=== PATIENT | female | born 1980 | race Asian ===

== ENCOUNTER 2016-11-20 06:40 | Inpatient (IN) | payer OTHER ==
[2016-11-20] MEDS ORDERED: LIDOCAINE 1% 30 ML SDV ONE (06:54)
[2016-11-20] MEDS ORDERED: OLIVE OIL 118 ML BTL ONE (06:54)
[2016-11-20] MEDS ORDERED: OXYTOCIN 10 UNIT/ML VIAL ONE (06:55)
[2016-11-20] MEDS ORDERED: MISOPROSTOL 200 MCG TAB ONE (06:55)
[2016-11-20] MEDS ORDERED: LR 1,000 ML IV PRN (07:01)
[2016-11-20] MEDS ORDERED: TERBUTALINE SULFATE 1 MG/ML VIAL IV PRN (07:01)
[2016-11-20] MEDS ORDERED: OLIVE OIL 118 ML BTL MISC PRN (07:01)
[2016-11-20] MEDS ORDERED: OXYTOCIN/RINGERS LACTATE 1,000 ML IV PRN (07:01)
[2016-11-20] MEDS ORDERED: EPSOM SALT 454 GM TP PRN (07:01)
[2016-11-20] MEDS ORDERED: LIDOCAINE 1% 30 ML SDV SC PRN (07:01)
[2016-11-20 07:14] LABS: % IMMATURE GRANULYOCYTES 1.2 % (0.0-1.1); ABSOLUTE IMMATURE GRANULOCYTES 0.11 10^3/uL (0.00-0.10); ADD DIFF? NO; ADD MORPH? NO; ADD SCAN? NO; ATYPICAL LYMPHOCYTE FLAG 0 (0-99); FRAGMENT RBC FLAG 0 (0-99); LEFT SHIFT FLG 10 (0-99); LIPEMIA HEMOLYSIS FLAG 90 (0-99); MEAN CELL HEMOGLOBIN 31.4 pg (27.9-34.1); MEAN CELL HEMOGLOBIN CONCENTR. 34.1 g/dL (32.4-36.7); MEAN CELL VOLUME 91.9 fL (81.5-99.8); MEAN PLATELET VOLUME 10.9 fL (8.7-11.7); PLATELET CLUMPS FLAG 30 (0-99); PLATELET COUNT 203 10^3/uL (150-400); RED BLOOD CELL COUNT 4.46 10^6/uL (4.18-5.33); RED CELL DISTRIBUTION WIDTH 13.4 % (11.5-15.2)
[2016-11-20] MEDS ORDERED: PHENYLEPHRINE HCL 100 MCG/ML SYR ONE (07:18)
[2016-11-20] MEDS ORDERED: fentaNYL 100 MCG/2 ML INJ ONE (07:18)
[2016-11-20] MEDS ORDERED: fentaNYL 2MCG/ML/BUP 0.1% RTU 100 ML BAG EP ONE (07:18)
[2016-11-20] MEDS ORDERED: BUPIVACAINE 0.25% 30 ML SDV ONE (07:18)
--- NOTE | 2016-11-20 07:37 | OBPROG ---
OBG Progress Note Assessment/Plan: Assessment: cat2 coping well with pain request for an epidural for pain relief bow intact 9/100/0 dania q2-3 minutes Plan:epidural expectant management of labor 11/20/16 07:35 Subjective: I would like to get an epidural for pain relief as soon as possible Objective: 11/20/16 07:00 - SVE Dilation (cm): 9 Effacement (%): 100 Station: 0 Current Contraction Pattern: Regular FHR (bpm): 135 FHR Pattern Variability: Moderate FHR Category: 2 Membranes: Intact - Physical Exam General Appearance: WD/WN, alert, no apparent distress Respiratory: chest non-tender, lungs clear, normal breath sounds Cardiac/Chest: regular rate, rhythm Abdomen: normal bowel sounds Extremities: normal range of motion, Irene's sign (negative bilaterally) DTR- Lower Extremities: Knee (R): 1+, Knee (L): 1+ (no clonus bilaterally) Skin: normal color, warm/dry Neuro/Psych: no motor/sensory deficits, alert, normal mood/affect, oriented x 3 ICD10 Worksheet Patient Problems: Problems Problem Status Onset term labor Acute
--- NOTE | 2016-11-20 08:14 | GHP ---
[f rep st] HISTORY AND PHYSICAL DATE OF ADMISSION: 11/20/2016 HISTORY OF PRESENT ILLNESS: The patient is a 36-year-old 2, para 1, with an EDC of 11/22/19 17, which gives her a gestational age of 39 and 6/7th weeks, who comes in with complaint of possible rupture of membranes at 3 a.m. and labor since 5 a.m. On admit, patient is 9, 100, and 0 station, feeling regular contractions every 2-3 minutes. States feeling positive movement. States pos itive bloody show. On exam, bag of water is intact. Patient has been routinely seeing [facility] since 11 and 07/07 weeks; first visit was 05/01/2016. MEDICAL HISTORY: Benign. HISTORY: Benign. FAMILY HISTORY: Benign. SOCIAL HISTORY: Patient is to [place]. Denies smoking and no drug use throughout the pregna ncy. PREVIOUS HISTORY: One delivery on 03/2014, a girl who weighed 7 pounds 4 ounces at 40 wee ks delivered, 12 hours delivered vaginally with an epidural with no complications. That child's nam e is Lolita. PHYSICAL ASSESSMENT: GENERAL: Patient is awake, alert, oriented x3. LUNGS: Clear bilaterally. A BDOMEN: Bowel sounds are positive in all 4 quadrants. EXTREMITIES: DTRs are 1+ bilaterally. Amelie ns sign is negative bilaterally. PELVIC: Contractions are q.2 to 3 minutes. Exam on admit: 9, 10 0, and 0 station. Bag of water was intact. Patient requested an epidural for pain relief. LABORATORY DATA: Patient is A positive, antibody negative, nonreactive RPR. Rubella is immune. He patitis is negative. HIV is negative. Trio screen on 05/01/2016 was negative. UA was negative. P ap, gonorrhea and chlamydia were negative. Verifi was negative. 1-hour GTT was within normal limit s. Patient is GBS negative. PLAN OF CARE: 1. Dr. Mendoza in for delivery. 2. GBS negative. 3. Epidural for pain relief. /[id number]/MODL
[2016-11-20] MEDS ORDERED: HYDROCORTISONE 0.5% CREAM TP PRN (09:57)
[2016-11-20] MEDS ORDERED: HYDROCODONE/APAP 5/325 TAB PO PRN (09:57)
[2016-11-20] MEDS ORDERED: ACETAMINOPHEN 325 MG TAB PO PRN (09:57)
[2016-11-20] MEDS ORDERED: SIMETHICONE 80 MG TAB CHEW PO PRN (09:57)
--- NOTE | 2016-11-20 09:59 | OBPROC ---
- Labor and Delivery Onset of Contractions Date: 11/20/16 Onset of Contractions Time: 05:00 Onset of Contractions Type: Spontaneous Rupture of Membranes Date: 11/20/16 Rupture of Membranes Time: :18 Rupture of Membranes Type: Artificial Amniotic Fluid Color: Clear Dilation Complete Time: :18 Delivery Type: Spontaneous Placenta Delivery Date: 11/20/16 Placenta Delivery Time: :36 Episiotomy/Laceration: 2nd Degree, Perineal Repair: 2-0, Vicryl EBL: 250 Complications: Other (Specify) (umbilical cord evulsed with delivery, placenta delivered intact without problem) - Medications Labor Augmentation/Induction Meds Used: None Anesthesia: Epidural - [place] Info A Delivery Date: 11/20/16 Delivery Time: 09:31 Sex of : Male Score (1 Min): 8 Score (5 Min): 9
[2016-11-20] MEDS: IBUPROFEN 600 MG TAB PO PRN ×2 (10:07→16:06)
[2016-11-20] MEDS ORDERED: PHENYLEPHRINE HCL 100 MCG/ML SYR IVP PRN (11:26)
[2016-11-20] MEDS ORDERED: ONDANSETRON 4 MG/2 ML VIAL IVP PRN (11:26)
[2016-11-20] MEDS ORDERED: fentaNYL 2MCG/ML/BUP 0.1% RTU 100 ML EP SCH (11:30)
[2016-11-20] MEDS ORDERED: LR 500 ML IV SCH (11:30)
--- NOTE | 2016-11-20 11:31 | PREANESOB ---
Obstetric Pre-Anesthesia Info - General Info Proposed Procedure: Labor and delivery. : 2 Para: 1 WBD: 40 - Info Monitors: External FHR Baseline (bpm): 135 FHR Pattern: Reassuring - Labor Status Cervical Dilation per last OB SVE: 9 Station per last OB SVE: 0 Rupture of Membranes Time: 09:18 Indications for Labor Analgesia: Pain Control Labor Epidural: Proposed Anesthesia ROS: Prior labor epidural. Allergies/Adverse Reactions: Allergy/AdvReac Type Severity Reaction Status Date / Time No Known Allergies Allergy Unverified 11/20/16 07:01 Visit Medications: Generic Name Dose Route Start Last Admin Trade Name Freq PRN Reason Stop Dose Admin Acetaminophen 325 - 650 mg 11/20/16 09:57 Tylenol PO 05/19/17 09:56 Q4HRS PRN Pain, Mild Hydrocodone Bitart/Acetaminophen 1 - 2 tab 11/20/16 09:57 [place] 5/325 PO 11/30/16 09:56 Q4HRS PRN Pain, Moderate Docusate Sodium 100 mg 11/20/16 09:57 Colace PO 05/19/17 09:56 BID PRN Constipation Hydrocortisone 1 ismael 11/20/16 09:57 Hydrocortisone 0.5% TP 05/19/17 09:56 QID PRN Hemorrhoids Lactated Ringer's 1,000 mls @ 0 mls/hr 11/20/16 07:01 Lr IV 05/19/17 07:00 PRN PRN SEE PROTOCOL CONDITIONS Protocol Per Protocol Oxytocin/Lactated Ringer's 1,000 mls @ 150 mls/hr 11/20/16 07:01 11/20/16 09: 35 Pitocin 20 Units/Lr (Premix) IV 1,000 mls PRN PRN Administration Post- bleeding Ibuprofen 600 mg 11/20/16 07:01 11/20/16 10:07 Motrin PO 05/19/17 07:00 600 mg Q6HRS PRN Administration post , inflammation Lidocaine HCl 30 ml 11/20/16 07:01 Lidocaine Hcl 1% SC 05/19/17 07:00 ONCE PRN Episiotomy Magnesium Sulfate 454 gm 11/20/16 07:01 Epsom Salt TP 05/19/17 07:00 PRN PRN perineal discomfort [place] Oil 118 ml 11/20/16 07:01 Sweet Oil MISC 05/19/17 07:00 ONCE PRN preneal massage Simethicone 80 mg 11/20/16 09:57 Mylicon PO 05/19/17 09:56 ACHS PRN Gas Terbutaline Sulfate 0.25 mg 11/20/16 07:01 Brethine IV 05/19/17 07:00 ONCE PRN Tachysystole Discontinued Medications Generic Name Dose Route Start Last Admin Trade Name Frelitzy PRN Reason Stop Dose Admin Bupivacaine HCl Confirm 11/20/16 07:18 Sensorcaine 0.25% Sdv Administered 11/20/16 07:19 Dose 30 ml .ROUTE .STK-MED ONE Fentanyl Confirm 11/20/16 07:18 Sublimaze Administered 11/20/16 07:19 Dose 100 mcg .ROUTE .STK-MED ONE Fentanyl/Bupivacaine HCl Confirm 11/20/16 07:18 Fentanyl/Bupivacaine/Ns 2 Mcg/Ml 0.1% (Premix Administered 11/20/16 07:19 Dose 100 ml EP .STK-MED ONE Lidocaine HCl Confirm 11/20/16 06:54 Lidocaine Hcl 1% Administered 11/20/16 06:55 Dose 30 ml .ROUTE .STK-MED ONE Misoprostol Confirm 11/20/16 06:55 Cytotec Administered 11/20/16 06:56 Dose 800 mcg .ROUTE .STK-MED ONE [place] Oil Confirm 11/20/16 06:54 Sweet Oil Administered 11/20/16 06:55 Dose 118 ml .ROUTE .STK-MED ONE Oxytocin Confirm 11/20/16 06:55 Pitocin Administered 11/20/16 06:56 Dose 40 unit .ROUTE .STK-MED ONE Phenylephrine HCl Confirm 11/20/16 07:18 Fred-Synephrine Administered 11/20/16 07:19 Dose 1,000 mcg .ROUTE .STK-MED ONE - Anesthesia History Response to Local Anesthetics: Normal Anesthesia & Operative History: No Prior Problems - Social History Substance Use/Abuse: Denies - Focused Exam Blood Pressure: 102/66 Heart Rate: 73 Respiratory Rate: 16 Height/Weight (Nursing): Height 158 cm Weight 70.76 kg Physical Exam: Within normal limits. ASA Status: II Labs: 11/20/16 07:00 Patient ABO/Rh A POSITIVE 11/20/16 07:00 - Plan Anesthetic Plan: CSE Consent Signed and on Chart: Yes Patient/Guardian Understands and Agrees to Plan: Yes General Comments: Written consent after epidural due to patient discomfort.
--- NOTE | 2016-11-20 11:34 | POSTANESTH ---
Post Anesthetic Evaluation Cardiovascular Status: Normal, Stable Respiratory Status: Normal, Stable, Similar to Pre-op Cond. Level of Consciousness/Mental Status: Can Participate in Eval, Alert and Oriented Pain Control: Adequate, Prn Tx Ordered (Tolerated CSE well, stable, comfortable. ) Nausea/Vomiting Control: Adequate, Prn Tx Ordered Complications Possibly Related to Anesthesia: None Noted
[2016-11-21] MEDS: IBUPROFEN 600 MG TAB PO PRN ×4 (00:11→19:47)
--- NOTE | 2016-11-21 09:45 | SOAPPROG ---
SOAP Progress Note Assessment/Plan: Assessment: ppd# 1 s/p breast feeding Plan: routine post care 11/21/16 09:43 Subjective: patient is doing well. pain is well controlled. normal lochia. denies headache and changes in vision. ambulating. having cramping with breast feeding. norco helps. Objective: Vital Signs Temp Pulse Resp BP Pulse Ox 36.8 C 92 18 103/68 96 11/20/16 20:00 11/20/16 20:00 11/20/16 20:00 11/20/16 20:00 11/20/16 20:00 Laboratory Results 11/20/16 07:00 11/20/16 11/21/16 11/22/16 05:59 05:59 05:59 Output Total 250 Balance -250 Physical Exam - Physical Exam General Appearance: WD/WN, alert, no apparent distress Respiratory: chest non-tender, lungs clear, normal breath sounds Cardiac/Chest: normal peripheral pulses, regular rate, rhythm Abdomen: normal bowel sounds, non-tender, soft, other (fundus firm and non tender) Skin: normal color, warm/dry Extremities: normal range of motion, non-tender, normal inspection, normal capillary refill Neuro/Psych: no motor/sensory deficits, alert, normal mood/affect, oriented x 3 ICD10 Worksheet Patient Problems: Problems Problem Status Onset term labor Acute
[2016-11-21] MEDS: DOCUSATE SODIUM 100 MG CAP PO PRN ×2 (13:31→19:47)
[2016-11-21 22:27] VITALS: PULSE 84
[2016-11-22] MEDS: IBUPROFEN 600 MG TAB PO PRN ×2 (02:31→09:10)
--- NOTE | 2016-11-22 08:14 | OBPROG ---
OBG Progress Note Assessment/Plan: Assessment: s/p PPD # 2- pt is stable Plan: Plan for d/c home today Instructions reviewed with pt Rx given for [place] and Motrin Cont PNV Pelvic rest RTC in 4 and 6 weeks 11/22/16 08:16 Objective: 11/20/16 07:00 Patient ABO/Rh A POSITIVE 11/20/16 07:00 Temp Pulse Resp BP Pulse Ox 36.6 C 84 18 103/65 96 11/21/16 20:00 11/21/16 20:00 11/21/16 20:00 11/21/16 20:00 11/21/16 20:00 Uterine Position/Fundal Height: Umbilicus -2 Uterine Tone: Firm - Physical Exam General Appearance: WD/WN, alert, no apparent distress Respiratory: lungs clear, normal breath sounds Cardiac/Chest: regular rate, rhythm Abdomen: normal bowel sounds, non-tender, soft, flatus (+) Extremities: non-tender, normal inspection Neuro/Psych: alert, normal mood/affect, oriented x 3 ICD10 Worksheet Patient Problems: Problems Problem Status Onset Acute term labor Acute
[2016-11-22] MEDS ORDERED: POLYETHYLENE GLYCOL 3350 17 GM PKT PO ONE (08:24)
[2016-11-22] MEDS: DOCUSATE SODIUM 100 MG CAP PO PRN (09:11)
[2016-11-22 09:26] VITALS: BP 104/63; RESP 24; TEMP 97.6; O2SAT 95
== END 2016-11-22 15:40 | disposition home or self-care (01) | DRG 775 ==
LOC: FLD 06:40 → OBSVTOIN 06:40 → FOB 12:44
PROVIDERS: ADMIT Advanced Practice Midwife; ATTEND Advanced Practice Midwife
PROC: 10E0XZZ Delivery of Products of Conception, External Approach (ICD-10-PCS; principal; 2016-11-20)
PROC: 10907ZC Drainage of Amniotic Fluid, Therapeutic from Products of Conception, Via Natural or Artificial Opening (ICD-10-PCS; principal; 2016-11-20)
PROC: 0KQM0ZZ Repair Perineum Muscle, Open Approach (ICD-10-PCS; principal; 2016-11-20)
DX: O70.1 Second degree perineal laceration during delivery (principal); Z37.0 Single live birth; Z3A.39 39 weeks gestation of pregnancy
CPT/HCPCS: J2370; J2590; J3010